=== PATIENT | female | born 1995 | race Caucasian/White ===

== ENCOUNTER 2016-07-27 15:31 | Observation (INO) | payer OTHER ==
--- NOTE | 2016-07-27 15:40 | EDPHY ---
H & P Time Seen by Provider: 07/27/16 15:31 HPI/ROS: CHIEF COMPLAINT: Multiple seizures HISTORY OF PRESENT ILLNESS: Patient is a history of chronic back pain and takes Xanax and Percocet and gabapentin. She tells me she had history of seizures in high school which she was told she "would outgrow." She does not know she was on medication in the past. Today she was at a training for a new job at the [employer] [place] when she felt nauseated went to the bathroom threw up several times and then went back to the training. She said she felt very hot and then does not remember anything after that until the paramedics. The EMS reports that she had 6 separate episodes which were described as possible seizures. The described her eyes fluttering in her face twitching and the patient becoming nonverbal from between 30 seconds to 4 minutes at a time. No incontinence. No grand mal activity. No tongue biting or laceration. Not currently postictal. Received 7.5mg IV versed by EMS. REVIEW OF SYSTEMS: Eye: no change in vision ENT: no sore throat Cardiac: no chest pain or syncope Pulmonary: no cough or SOB Abdomen: No diarrhea or abdominal pain Musculoskeletal: Chronic back pain unchanged Skin: no rash Neuro: no headache Constitutional: no fever : no urinary symptoms A comprehensive 10 point review of systems is otherwise negative aside from elements mentioned in the history of present illness. PAST MEDICAL HISTORY: Includes back pain as above, history of neurocardiogenic syncope. Social history: Moved here from [place] 1 year ago, her prescribing physician is still in [place] General Appearance: Alert and conversant, cooperative. Eyes: No scleral icterus. ENT, Mouth: Normal mucous membranes. No tongue laceration or abrasion Respiratory: Normal respiratory effort, breath sounds equal, lungs are clear to auscultation. Cardiovascular: Regular rate and rhythm. Gastrointestinal: Abdomen is soft and non tender. Neurological: Alert and oriented x3. Normally conversant. Face symmetric, normal movement and sensation in all extremities. Not tremulous. Normal finger- to-nose bilaterally. Skin: Warm and dry, no rashes. Musculoskeletal: No peripheral edema and no joint swelling. Psychiatric: Not agitated. Emergency Department course/MDM: Called patient's father with her permission at 3:40 p.m. Discussed at 4814; neurocardiogenic syncope history per father, but not epilepsy. I think it is highly likely that this is recurrent neurocardiogenic syncope. Especially in the setting of nausea vomiting and feeling very hot in the training room. I do not think this is likely to represent a grand mal seizures or status epilepticus. Plan for IV normal saline 2 L, observation in the emergency department, we will definitely need to wait for her Versed start to wear off. 1720: Patient was sitting up and then had an episode where she passed out, started hyperventilating, her eyelids were fluttering, lasted about 1 minutes and then she woke up and was immediately lucid. She tells me these are the episodes that she had in high school which her father told me were diagnosed as neurocardiogenic syncope. She now has a migraine headache which is typical for her. 15 mg Toradol IV and 4 mg Zofran IV and 3rd L normal saline. 1824: Continues migraine, Reglan and dexamethasone 1919: Patient had 2 more episodes here, at this time she is sleepy and her headache is better and she is able to be awakened easily. At this time the patient is to be admitted as she had continued episodes and is not safe to go home. 2001: Fanestil for hospitalist. Smoking Status: Never smoked Constitutional: Initial Vital Signs Temperature (C) 37 C 07/27/16 15:31 Heart Rate 97 07/27/16 15:31 Respiratory Rate 16 07/27/16 15:31 Blood Pressure 140/96 H 07/27/16 15:31 O2 Sat (%) 98 07/27/16 15:31 O2 Delivery Mode Room Air Allergies/Adverse Reactions: No Known Allergies Allergy (Verified 11/05/15 11:38) Home Medications: Medication Instructions Recorded ALPRAZolam [Xanax 1 MG (*)] 1 mg PO DAILY PRN 10/20/15 Nebivolol HCl [Bystolic 5 mg (*)] 5 mg PO HS 10/20/15 Zaleplon [Sonata] 10 mg PO HS 10/20/15 Etonogestrel/Ethinyl Estradiol 1 each VG Q30D 11/05/15 [Nuvaring Vaginal Ring] Cyanocobalamin [Vitamin B12 (*)] 1,000 mcg PO HS 07/27/16 Gabapentin [Neurontin 300 MG (*)] 600 mg PO HS 07/27/16 Herbals/Supplements -Info Only 1 ea PO DAILY 07/27/16 oxyCODONE/APAP [Percocet 1 tab PO HS PRN 07/27/16] Medical Decision Making - Diagnostics EKG Interpretation: 12-lead EKG interpreted by me; official reading is in trace master. My interpretation is sinus rhythm with borderline T-wave abnormalities otherwise normal, rate 99. Differential Diagnosis: Differential diagnosis considered for syncope including but not limited to vasovagal syncope, arrhythmia, dehydration, and blood loss. - Data Points Laboratory Results: Laboratory Results 07/27/16 15:30 07/27/16 15:30 07/27/16 07/27/16 07/27/16 15:30 15:30 15:30 WBC 6.91 10^3/uL 10^3/uL (3.80-9.50) RBC 4.51 10^6/uL 10^6/uL (4.18-5.33) Hgb 13.9 g/dL g/dL (12.6-16.3) Hct 40.0 % % (38.0-47.0) MCV 88.7 fL fL (81.5-99.8) MCH 30.8 pg pg (27.9-34.1) MCHC 34.8 g/dL g/dL (32.4-36.7) RDW 12.6 % % (11.5-15.2) Plt Count 282 10^3/uL 10^3/uL (150-400) MPV 9.3 fL fL (8.7-11.7) Neut % (Auto) 41.4 % % (39.3-74.2) Lymph % (Auto) 44.6 % % (15.0-45.0) Emmons % (Auto) 12.7 % % (4.5-13.0) Eos % (Auto) 0.4 % L % (0.6-7.6) Baso % (Auto) 0.6 % % (0.3-1.7) Nucleat RBC Rel Count 0.0 % % (0.0-0.2) Absolute Neuts (auto) 2.86 10^3/uL 10^3/uL (1.70-6.50) Absolute Lymphs (auto) 3.08 10^3/uL H 10^3/uL (1.00-3.00) Absolute Monos (auto) 0.88 10^3/uL H 10^3/uL (0.30-0.80) Absolute Eos (auto) 0.03 10^3/uL 10^3/uL (0.03-0.40) Absolute Basos (auto) 0.04 10^3/uL 10^3/uL (0.02-0.10) Absolute Nucleated RBC 0.00 10^3/uL 10^3/uL (0-0.01) Immature Gran % 0.3 % % (0.0-1.1) Immature Gran # 0.02 10^3/uL 10^3/uL (0.00-0.10) Sodium 138 mEq/L mEq/L (134-144) Potassium 3.7 mEq/L mEq/L (3.5-5.2) Chloride 100 mEq/L mEq/L (97-110) Carbon Dioxide 24 mEq/l mEq/l (22-31) Anion Gap 14 mEq/L mEq/L (8-16) BUN 16 mg/dL mg/dL (7-23) Creatinine 0.9 mg/dL mg/dL (0.6-1.0) Estimated GFR > 60 Glucose 92 mg/dL mg/dL (70-100) Calcium 10.1 mg/dL mg/dL (8.5-10.4) Beta HCG, Qual NEGATIVE Medications Given: Discontinued Medications Dexamethasone (Decadron Injection) 10 mg IVP EDNOW ONE Stop: 07/27/16 18:23 Last Admin: 07/27/16 18:37 Dose: 10 mg Sodium Chloride (Ns) 1,000 mls @ 0 mls/hr IV ONCE ONE; Wide Open PRN Reason: Protocol Stop: 07/27/16 15:43 Last Admin: 07/27/16 15:44 Dose: 1,000 mls Sodium Chloride (Ns) 1,000 mls @ 0 mls/hr IV ONCE ONE; Wide Open PRN Reason: Protocol Stop: 07/27/16 15:48 Last Admin: 07/27/16 15:52 Dose: 1,000 mls Sodium Chloride (Ns) 1,000 mls @ 0 mls/hr IV ONCE ONE; Wide Open PRN Reason: Protocol Stop: 07/27/16 17:21 Last Admin: 07/27/16 17:32 Dose: 1,000 mls Ketorolac Tromethamine (Toradol) 15 mg IVP EDNOW ONE Stop: 07/27/16 17:21 Last Admin: 07/27/16 17:32 Dose: 15 mg Metoclopramide HCl (Reglan Injection) 10 mg IVP EDNOW ONE Stop: 07/27/16 18:23 Last Admin: 07/27/16 18:37 Dose: 10 mg Ondansetron HCl (Zofran) 4 mg IVP EDNOW ONE Stop: 07/27/16 17:21 Last Admin: 07/27/16 17:32 Dose: 4 mg Departure - Departure Disposition: [facility] Acute Clinical Impression: Syncope Qualifiers: Syncope type: unspecified Qualified Code(s): R55 - Syncope and collapse Condition: Good
[2016-07-27] MEDS ORDERED: NS 1,000 ML IV ONE ×3 (15:42→17:20)
[2016-07-27 15:48] LABS: % IMMATURE GRANULYOCYTES 0.3 % (0.0-1.1); ABSOLUTE IMMATURE GRANULOCYTES 0.02 10^3/uL (0.00-0.10); ADD DIFF? NO; ADD MORPH? NO; ADD SCAN? NO; ATYPICAL LYMPHOCYTE FLAG 20 (0-99); FRAGMENT RBC FLAG 0 (0-99); HEMOGLOBIN 13.9 g/dL (12.6-16.3); LEFT SHIFT FLG 0 (0-99); LIPEMIA HEMOLYSIS FLAG 90 (0-99); MEAN CELL HEMOGLOBIN 30.8 pg (27.9-34.1); MEAN CELL HEMOGLOBIN CONCENTR. 34.8 g/dL (32.4-36.7); MEAN CELL VOLUME 88.7 fL (81.5-99.8); MEAN PLATELET VOLUME 9.3 fL (8.7-11.7); PLATELET CLUMPS FLAG 0 (0-99); PLATELET COUNT 282 10^3/uL (150-400); RED BLOOD CELL COUNT 4.51 10^6/uL (4.18-5.33); RED CELL DISTRIBUTION WIDTH 12.6 % (11.5-15.2)
--- NOTE | 2016-07-27 15:51 | CPEKG ---
Heart Rate: 99 RR Interval: 606 P-R Interval: 188 QRSD Interval: 84 QT Interval: 368 QTC Interval: 473 P Avinger: 36 QRS Avinger: 7 T Wave Avinger: 8 EKG Severity - BORDERLINE ECG - EKG Impression: SINUS RHYTHM EKG Impression: BORDERLINE T WAVE ABNORMALITIES Electronically Signed By: William Camarena 27-Jul-2016 15:56:45
[2016-07-27 16:09] LABS: ANION GAP 14 mEq/L (8-16); CALCIUM 10.1 mg/dL (8.5-10.4); CARBON DIOXIDE 24 mEq/l (22-31); CHLORIDE 100 mEq/L (97-110); CREATININE 0.9 mg/dL (0.6-1.0); GLOMERULAR FILTRATION RATE > 60; GLUCOSE 92 mg/dL (70-100); POTASSIUM 3.7 mEq/L (3.5-5.2); SODIUM 138 mEq/L (134-144)
[2016-07-27] MEDS ORDERED: KETOROLAC 15 MG/1 ML SDV ONE (17:20)
[2016-07-27] MEDS ORDERED: ONDANSETRON 4 MG/2 ML VIAL ONE (17:20)
[2016-07-27] MEDS ORDERED: ONDANSETRON 4 MG/2 ML VIAL IVP ONE (17:20)
[2016-07-27] MEDS ORDERED: KETOROLAC 30 MG/1 ML SDV IVP ONE (17:20)
[2016-07-27] MEDS ORDERED: METOCLOPRAMIDE 10 MG/2 ML VIAL IVP ONE (18:22)
[2016-07-27] MEDS ORDERED: DEXAMETHASONE 10 MG/ML VIAL IVP ONE (18:22)
[2016-07-27] MEDS: LORazepam 2 MG/ML INJ IVP PRN (23:00)
[2016-07-27] MEDS ORDERED: ACETAMINOPHEN 325 MG TAB PO PRN (23:15)
[2016-07-27] MEDS ORDERED: ONDANSETRON DISINTEGRATING 4 MG TAB PO PRN (23:15)
[2016-07-27] MEDS ORDERED: NS 1,000 ML IV SCH (23:15)
[2016-07-27] MEDS ORDERED: ONDANSETRON 4 MG/2 ML VIAL IVP PRN (23:15)
[2016-07-27] MEDS ORDERED: LORazepam 2 MG/ML INJ ONE (23:18)
[2016-07-27] MEDS ORDERED: levETIRAcetam 1,000 MG in NS 100 ML IV ONE (23:21)
[2016-07-27] MEDS: OXYCODONE/APAP 5/325 TAB PO PRN (23:53)
[2016-07-28 00:13] LABS: COLOR PALE YELLOW; LEUKOCYTE ESTERASE,URINE NEGATIVE (NEGATIVE); NITRITE,URINE NEGATIVE (NEGATIVE)
[2016-07-28 00:24] LABS: BACTERIA TRACE /hpf (NONE SEEN)
[2016-07-28] MEDS ORDERED: ZOLPIDEM TARTRATE 5 MG TAB PO PRN (01:07)
[2016-07-28 01:10] LABS: PHENCYCLIDINE URINE BCH < 6 ng/ml (NEGATIVE); PHENCYCLIDINE URINE BCH NEGATIVE (NEGATIVE); TETRAHYDROCANNABINOL URINE < 5 ng/mL (NEGATIVE); TETRAHYDROCANNABINOL URINE NEGATIVE (NEGATIVE)
[2016-07-28] MEDS: OXYCODONE/APAP 5/325 TAB PO PRN (04:30)
[2016-07-28 04:36] VITALS: TEMP 98.5
[2016-07-28] MEDS: LORazepam 2 MG/ML INJ IVP PRN (05:00)
[2016-07-28] MEDS ORDERED: NS 1,000 ML IV ONE (05:05)
[2016-07-28] MEDS ORDERED: NS IV ONE (05:07)
[2016-07-28] MEDS ORDERED: PHENYTOIN SODIUM IV ONE (05:07)
--- NOTE | 2016-07-28 05:12 | PDGENHP ---
History and Physical - Chief Complaint unresponsive episodes - History of Present Illness Patient is a 21 year old female with reported history of neurocardiac syncope ( with recurrent syncope in 2010, none since) who presents to the ED after several unresponsive episodes. Patient was apparently at work today when at lunch she reports suddenly feeling hot/flushed. Shortly after this she reports having an acute wave of nausea and began vomiting several times (nonbloody/ nonbilious). Immediately after this, she felt significant dizzy, altered her coworker and was helped to the ground before becoming unresponsive. Patient does not remember any details after this. EMS was then called and on their evaluation, patient had 3 episodes of unresponsive shaking, twitching, eye rolling, which were by brief lucid intervals. She was given a total of 7.5 mg of IV versed while en route to the ED. On arrival to the ED, patient was afebrile, hemodynamically stable and saturating well. She arrived to the ED lucid, able to give history and during ED course had an additional 3 episodes of unresponsiveness, lasting about 1-2 minutes, resolved without intervention. She was again lucid after these episodes and complaining of a headache. Labs revealed normal cbc, bmp. She was given treatment for her headache and admitted for further management. After admission and arrival to the general medical floor, patient had another unresponsive episode, witnessed by myself. The episode was preceded by dry heaving, intense nausea. Shortly after this, patient became unresponsive, developed a R gaze preference and had low amplitude twitching of all her limbs. This lasted for approximately 1 minute and was stopped when ativan 1 mg IVP was given. At this time, patient was loaded with keppra [address] head was obtained. CT head was negative for any acute abnormalities. Again this morning at about 5 am, patient had another series of episodes similar to the above described event. The episodes were preceded by retching/ dry heaving without vomiting, lasted between 2-3 minutes. She was given ativan 1 mg again, but then again seized within the next 2 minutes, again lasting about 2-3 minutes. At this time she was transferred to the ICU and also loaded with phenytoin. She continues to protect her airway at this time. [facility] neurology was consulted and recommend transfer to [facility] for neuroICU care. History Information - Allergies/Home Medication List Allergies/Adverse Reactions: No Known Allergies Allergy (Verified 11/05/15 11:38) Home Medications: ALPRAZolam [Xanax 1 MG (*)] 1 mg PO DAILY PRN 10/20/15 [Last Taken 07/20/16] Nebivolol HCl [Bystolic 5 mg (*)] 5 mg PO HS 10/20/15 [Last Taken 07/26/16 23:00 ] Zaleplon [Sonata] 10 mg PO HS 10/20/15 [Last Taken 07/26/16 23:00] Etonogestrel/Ethinyl Estradiol [Nuvaring Vaginal Ring] 1 each VG Q30D 11/05/15 [ Last Taken Unknown] Cyanocobalamin [Vitamin B12 (*)] 1,000 mcg PO HS 07/27/16 [Last Taken 07/26/16 23:00] Gabapentin [Neurontin 300 MG (*)] 600 mg PO HS 07/27/16 [Last Taken 07/26/16 23: 00] Herbals/Supplements -Info Only 1 ea PO DAILY 07/27/16 [Last Taken Unknown] oxyCODONE/APAP 5/325 [Percocet 5/325] 1 tab PO HS PRN 07/27/16 [Last Taken 07/26 23:00] I have personally reviewed and updated: family history, medical history, social history, surgical history - Past Medical History Additional medical history: chronic back pain, lumbar radiculopathy. neurogenic syncope - Family History Additional family history: tonsillectomy. appendectomy. wisdom tooth extraction - Social History Smoking Status: Never smoked Alcohol Use: Occasionally Drug Use: None Additional social history: denies drug use; lives in [place] originally from [place] [facility] [facility] Review of Systems ROS: 10pt was reviewed & negative except for what was stated in HPI & below Physical Exam Temp Pulse Resp BP Pulse Ox 36.9 C 93 16 123/73 H 94 07/28/16 04:00 07/28/16 04:00 07/28/16 04:00 07/28/16 04:00 07/28/16 04:00 Constitutional: no apparent distress, appears nourished, not in pain Eyes: PERRL, anicteric sclera, EOMI Ears, Nose, Mouth, Throat: moist mucous membranes, hearing normal, ears appear normal, no oral mucosal ulcers Cardiovascular: regular rate and rhythym, no murmur, rub, or gallop, pulses symmetric bilaterally, No JVD, No edema Peripheral Pulses: 2+: dorsalis-pedis (R), dorsalis-pedis (L) Respiratory: no respiratory distress, no rales or rhonchi, clear to auscultation Gastrointestinal: normoactive bowel sounds, soft, non-tender abdomen, no palpable masses, No guarding, No rebound, No distension Genitourinary: no bladder fullness, no bladder tenderness Skin: warm, normal color, no rashes or abrasions, no fluctuance, no induration, No mottled Musculoskeletal: full muscle strength, no muscle tenderness, normal joint ROM, no joint effusions Neurologic: AAOx3, sensation intact bilaterally, CN II-XII Intact, No weakness, No numbness, No facial droop Psychiatric: interacting appropriately, not anxious, not encephalopathic, thought process linear, other (episode consistent with a generalized tonic clonic seizure) Lab Data & Imaging Review 07/28/16 04:21 07/27/16 15:30 WBC 6.91 10^3/uL (3.80-9.50) 07/27/16 15:30 RBC 4.51 10^6/uL (4.18-5.33) 07/27/16 15:30 Hgb 13.9 g/dL (12.6-16.3) 07/27/16 15:30 Hct 40.0 % (38.0-47.0) 07/27/16 15:30 MCV 88.7 fL (81.5-99.8) 07/27/16 15:30 MCH 30.8 pg (27.9-34.1) 07/27/16 15:30 MCHC 34.8 g/dL (32.4-36.7) 07/27/16 15:30 RDW 12.6 % (11.5-15.2) 07/27/16 15:30 Plt Count 282 10^3/uL (150-400) 07/27/16 15:30 MPV 9.3 fL (8.7-11.7) 07/27/16 15:30 Neut % (Auto) 41.4 % (39.3-74.2) 07/27/16 15:30 Lymph % (Auto) 44.6 % (15.0-45.0) 07/27/16 15:30 Scurry % (Auto) 12.7 % (4.5-13.0) 07/27/16 15:30 Eos % (Auto) 0.4 % (0.6-7.6) L 07/27/16 15:30 Baso % (Auto) 0.6 % (0.3-1.7) 07/27/16 15:30 Nucleat RBC Rel Count 0.0 % (0.0-0.2) 07/27/16 15:30 Absolute Neuts (auto) 2.86 10^3/uL (1.70-6.50) 07/27/16 15:30 Absolute Lymphs (auto) 3.08 10^3/uL (1.00-3.00) H 07/27/16 15:30 Absolute Monos (auto) 0.88 10^3/uL (0.30-0.80) H 07/27/16 15:30 Absolute Eos (auto) 0.03 10^3/uL (0.03-0.40) 07/27/16 15:30 Absolute Basos (auto) 0.04 10^3/uL (0.02-0.10) 07/27/16 15:30 Absolute Nucleated RBC 0.00 10^3/uL (0-0.01) 07/27/16 15:30 Immature Gran % 0.3 % (0.0-1.1) 07/27/16 15:30 Immature Gran # 0.02 10^3/uL (0.00-0.10) 07/27/16 15:30 Sodium 138 mEq/L (134-144) 07/27/16 15:30 Potassium 3.7 mEq/L (3.5-5.2) 07/27/16 15:30 Chloride 100 mEq/L (97-110) 07/27/16 15:30 Carbon Dioxide 24 mEq/l (22-31) 07/27/16 15:30 Anion Gap 14 mEq/L (8-16) 07/27/16 15:30 BUN 16 mg/dL (7-23) 07/27/16 15:30 Creatinine 0.9 mg/dL (0.6-1.0) 07/27/16 15:30 Estimated GFR > 60 07/27/16 15:30 Glucose 92 mg/dL (70-100) 07/27/16 15:30 Calcium 10.1 mg/dL (8.5-10.4) 07/27/16 15:30 Beta HCG, Qual NEGATIVE 07/27/16 15:30 Urine Color PALE YELLOW 07/27/16 22:30 Urine Appearance CLEAR 07/27/16 22:30 Urine pH 5.0 (5.0-7.5) 07/27/16 22:30 Ur Specific [place] 1.008 (1.002-1.030) 07/27/16 22:30 Urine Protein NEGATIVE (NEGATIVE) 07/27/16 22:30 Urine Ketones NEGATIVE (NEGATIVE) 07/27/16 22:30 Urine Blood 1+ (NEGATIVE) H 07/27/16 22:30 Urine Nitrate NEGATIVE (NEGATIVE) 07/27/16 22:30 Urine Bilirubin NEGATIVE (NEGATIVE) 07/27/16 22:30 Urine Urobilinogen NEGATIVE EU (0.2-1.0) 07/27/16 22:30 Ur Leukocyte Esterase NEGATIVE (NEGATIVE) 07/27/16 22:30 Urine RBC 1-3 /hpf (0-3) 07/27/16 22:30 Urine WBC 1-3 /hpf (0-3) 07/27/16 22:30 Ur Epithelial Cells TRACE /lpf (NONE-1+) 07/27/16 22:30 Urine Bacteria TRACE /hpf (NONE SEEN) H 07/27/16 22:30 Urine Glucose NEGATIVE (NEGATIVE) 07/27/16 22:30 Urine Opiates Screen NEGATIVE ng/mL (NEGATIVE) 07/27/16 22:30 Urine Barbiturates NEGATIVE ng/mL (NEGATIVE) 07/27/16 22:30 Ur Phencyclidine Scrn NEGATIVE ng/mL (NEGATIVE) 07/27/16 22:30 Ur Amphetamines Screen NEGATIVE ng/mL (NEGATIVE) 07/27/16 22:30 U Benzodiazepines Scrn 1257 ng/mL (NEGATIVE) 07/27/16 22:30 Urine Cocaine Screen 1982 ng/mL (NEGATIVE) 07/27/16 22:30 U Marijuana (THC) Screen NEGATIVE ng/mL (NEGATIVE) 07/27/16 22:30 Influenza A & B (PCR) NEGATIVE FOR FLU (NEGATIVE) 07/27/16 00:10 Visualized and Interpreted imaging results: Yes Interpretation: CT head: no acute abnormalities Visualized and Interpreted EKG results: Yes EKG Interpretation: Positive for: normal sinsus rhythm Assessment & Plan Assessment: Patient is a 21 year old female with history of neurocardiogenic syncope in young adulthood who presents to the ED with a series of unresponsive episodes. Initial ED evaluation was concerning for recurrent syncopal episodes, however, on my assessment, patient has generalized tonic clonic seizures, recurrent, consistent with status epilepticus. She has been transferred to the ICU, loaded with phenytoin. [facility] neurology was consulted and recommend transfer to [facility] for neuroICU care. Plan: # status epilepticus This morning patient has several seizures, lasting minutes, not resolved with ativan, consistent with status epilepticus. She has now been loaded with Keppra 1 g and now also phenytoin. Etiology of seizures is not clear at this time; patient has no obvious signs/symptoms of infection, CT head was unremarkable for acute abnormalities. Drug screen is positive for cocaine. Will require transfer to [facility] for neuro ICU care, continuous EEG monitoring. [facility] neurology has been consulted and have accepted the patient. #gen: NPO Full code
[2016-07-28 05:20] LABS: % IMMATURE GRANULYOCYTES 0.6 % (0.0-1.1); ABSOLUTE IMMATURE GRANULOCYTES 0.04 10^3/uL (0.00-0.10); ADD DIFF? NO; ADD MORPH? NO; ADD SCAN? NO; ATYPICAL LYMPHOCYTE FLAG 0 (0-99); FRAGMENT RBC FLAG 0 (0-99); HEMATOCRIT 38.2 % (38.0-47.0); HEMOGLOBIN 13.2 g/dL (12.6-16.3); LEFT SHIFT FLG 10 (0-99); LIPEMIA HEMOLYSIS FLAG 90 (0-99); MEAN CELL HEMOGLOBIN 30.8 pg (27.9-34.1); MEAN CELL HEMOGLOBIN CONCENTR. 34.6 g/dL (32.4-36.7); MEAN PLATELET VOLUME 9.3 fL (8.7-11.7); PLATELET CLUMPS FLAG 0 (0-99); PLATELET COUNT 265 10^3/uL (150-400); RED BLOOD CELL COUNT 4.29 10^6/uL (4.18-5.33); RED CELL DISTRIBUTION WIDTH 12.7 % (11.5-15.2)
[2016-07-28 05:30] LABS: INR 0.99 (0.83-1.16)
[2016-07-28 05:31] LABS: APTT 26.2 SEC (23.0-38.0)
[2016-07-28 05:46] LABS: ANION GAP 9 mEq/L (8-16); CALCIUM 9.1 mg/dL (8.5-10.4); CARBON DIOXIDE 19 mEq/l (22-31); CHLORIDE 111 mEq/L (97-110); CREATININE 0.7 mg/dL (0.6-1.0); GLOMERULAR FILTRATION RATE > 60; GLUCOSE 122 mg/dL (70-100); MAGNESIUM 1.8 mg/dL (1.6-2.3); POTASSIUM 4.4 mEq/L (3.5-5.2); SODIUM 139 mEq/L (134-144)
[2016-07-28 05:59] LABS: PROLACTIN 24.3 ng/mL (3.0-18.6)
[2016-07-28 08:25] VITALS: BP 118/64; PULSE 97; RESP 21; O2SAT 98
== END 2016-07-28 09:04 | disposition short-term general hospital (02) ==
LOC: EDUNIT# → F3N 20:57 → F2N 07-28 05:30
PROVIDERS: ADMIT Internal Medicine; ATTEND Internal Medicine
DX: G40.901 Epilepsy, unspecified, not intractable, with status epilepticus (principal); R55 Syncope and collapse; M54.16 Radiculopathy, lumbar region; G89.29 Other chronic pain; G43.909 Migraine, unspecified, not intractable, without status migrainosus
CPT/HCPCS: 70450; 71010; 93005; G0378; 80307; 96374; G0480; J1885; J1953; J2060; J2405; J2765

== ENCOUNTER 2016-11-28 02:01 | Emergency (ER) | payer MEDICAID, OTHER ==
[2016-11-28 02:09] VITALS: RESP 20
--- NOTE | 2016-11-28 02:35 | EDPHY ---
H & P Stated Complaint: rectal bleed/ pain, bloody vomit Time Seen by Provider: 11/28/16 02:16 HPI/ROS: HPI The patient presents with bright red blood per rectum which has been present for the last 1 day. She she has been taking opiate pain medications for about 1 year, Percocet 5 mg, 3 tabs multiple times a day. She has lately had hard painful stools. Then she began to notice blood in the toilet bowl today. She also had several episodes of vomiting which were initially yellowish and then became blood tinged. She denies any abdominal pain.. REVIEW OF SYSTEMS Constitutional: No fever, no chills. Eyes: No discharge. ENT: No sore throat. Cardiovascular: No chest pain, no palpitations. Respiratory: No cough, no shortness of breath. Gastrointestinal: No abdominal pain, no vomiting. Genitourinary: No hematuria. Musculoskeletal: No back pain. Skin: No rashes. Neurological: No headache. PMHx: Chronic low back pain PHYSICAL General Appearance: Alert, no distress Eyes: Pupils equal and round no pallor or injection ENT, Mouth: Mucous membranes moist Respiratory: There are no retractions, lungs are clear to auscultation Cardiovascular: Regular rate and rhythm Gastrointestinal: Abdomen is soft and non-tender, no masses, bowel sounds normal Rectal: Multiple external hemorrhoids which are tender to palpation without any color change or firmness, no active bleeding Neurological: A&O, moves all extremities Skin: Warm and dry, no rashes Musculoskeletal: Neck is supple non tender Extremities: symmetrical, full range of motion Psychiatric: Patient is oriented X 3, there is no agitation Source: Patient Exam Limitations: No limitations - Personal History LMP (Females 10-55): IUD In Place - Medical/Surgical History Hx Asthma: No Hx Chronic Respiratory Disease: No Hx Diabetes: No Hx Cardiac Disease: No Hx Renal Disease: No Hx Cirrhosis: No Hx Alcoholism: No Hx HIV/AIDS: No Hx Splenectomy or Spleen Trauma: No Other PMH: HTN, migrainesl, SZ. chronic back problems, L5/S1 herniated disck - Social History Smoking Status: Never smoked Constitutional: Initial Vital Signs Temperature (C) 37.2 C 11/28/16 02:06 Heart Rate 100 11/28/16 02:06 Respiratory Rate 20 11/28/16 02:06 Blood Pressure 135/90 H 11/28/16 02:06 O2 Delivery Mode Room Air Allergies/Adverse Reactions: No Known Allergies Allergy (Verified 11/28/16 02:04) Home Medications: Medication Instructions Recorded ALPRAZolam [Xanax 1 MG (*)] 1 mg PO DAILY PRN 10/20/15 Nebivolol HCl [Bystolic 5 mg (*)] 5 mg PO HS 10/20/15 Cyanocobalamin [Vitamin B12 (*)] 1,000 mcg PO HS 07/27/16 Gabapentin [Neurontin 300 MG (*)] 600 mg PO HS 07/27/16 Herbals/Supplements -Info Only 1 ea PO DAILY 07/27/16 oxyCODONE/APAP 5/325 [Percocet 1 tab PO HS PRN 07/27/16 5/325] Buspar (*) 11/28/16 Hydrocodone Bit/Acetaminophen 11/28/16 Hydrocortisone Acetate [Anucort-Hc] 25 mg RC BID #14 supp.rect 11/28/16 Polyethylene Glycol 3350 [Miralax 17 gm PO DAILY #20 pkt 11/28/16 17 gm (*)] Temazepam 11/28/16 Medical Decision Making Differential Diagnosis: This is a 21-year-old female who presents with 1 day of painful rectal bleeding associated with hard stools. On exam, she has several external tender hemorrhoids which do not appear thrombosed. I feel she is likely suffering from constipation for her chronic opiate use. This has likely exacerbated her external hemorrhoids and caused bleeding. I have explained this to her. I will treat her with MiraLax and Anusol. She is to try these medications for 2 weeks and if not feeling better, she can follow up with General surgery. I- STAT was checked and her hemoglobin is within normal limits, thus I doubt any serious bleeding. Other considerations for her bleeding include AVM or colon cancer, however I feel these are much less likely. - Data Points Medications Given: Discontinued Medications Ondansetron HCl (Zofran Odt) 4 mg PO EDNOW ONE Stop: 11/28/16 03:32 Last Admin: 11/28/16 03:31 Dose: 4 mg Ondansetron HCl (Zofran Odt 4 Mg Prepack#2) 1 btl TAKEHOME EDNOW ONE Stop: 11/28/16 03:32 Last Admin: 11/28/16 03:32 Dose: 1 btl Departure - Departure Disposition: Home, Routine, Self-Care Clinical Impression: Constipation, Rectal bleeding, External hemorrhoids Condition: Good Instructions: Ondansetron (By mouth), Hemorrhoids (ED) Additional Instructions: To help with your constipation, you should try to stop taking the Percocet. You should meet with your pain management doctor to see what alternatives exists. You should make sure to take the MiraLax once daily. If you continue to have constipation with this, then you should add magnesium citrate. If your hemorrhoids continue to bother you despite treatment for 2 weeks with these medications, then you can make an appointment with the surgeon. Referrals: JORGE,SANKET [Other] - As per Instructions Popeye Navarro MD [Medical Doctor] - As per Instructions Prescriptions: Hydrocortisone Acetate [Anucort-Hc] 25 mg RC BID #14 supp.rect Polyethylene Glycol 3350 [Miralax 17 gm (*)] 17 gm PO DAILY #20 pkt
[2016-11-28] MEDS ORDERED: ONDANSETRON DISINTEGRATING 4 MG TAB ONE (03:26)
[2016-11-28] MEDS ORDERED: ONDANSETRON 4MG PREPACK#2 BTL TAKEHOME ONE ×2 (03:26→03:31)
[2016-11-28] MEDS ORDERED: ONDANSETRON DISINTEGRATING 4 MG TAB PO ONE (03:31)
[2016-11-28 03:44] VITALS: BP 95/71; PULSE 80; TEMP 97.7; O2SAT 95
== END 2016-11-28 03:44 | disposition home or self-care (01) ==
DX: K64.4 Residual hemorrhoidal skin tags (principal); K59.00 Constipation, unspecified; I10 Essential (primary) hypertension
CPT/HCPCS: 82947-QW

== ENCOUNTER 2017-08-20 11:38 | Emergency (ER) | payer BC, OTHER ==
--- NOTE | 2017-08-20 12:27 | EDPHY ---
H & P Stated Complaint: R abd pain radiating R flank~1wk;HOUSE MOVER SUPERVISOR eval 7/3 +small ov cysts Time Seen by Provider: 08/20/17 12:27 - Personal History LMP (Females 10-55): IUD In Place Current Tetanus Diphtheria and Acellular Pertussis (TDAP): Yes - Medical/Surgical History Hx Asthma: No Hx Chronic Respiratory Disease: No Hx Diabetes: No Hx Cardiac Disease: No Hx Renal Disease: No Hx Cirrhosis: No Hx Alcoholism: No Hx HIV/AIDS: No Hx Splenectomy or Spleen Trauma: No Other PMH: HTN, migrainesl, SZ. chronic back problems, L5/S1 herniated disck - Social History Smoking Status: Never smoked Constitutional: Initial Vital Signs Temperature (C) 36.9 C 08/20/17 11:42 Heart Rate 96 08/20/17 11:42 Respiratory Rate 18 08/20/17 11:42 Blood Pressure 133/98 H 08/20/17 11:42 O2 Sat (%) 98 08/20/17 11:42 O2 Delivery Mode Room Air Allergies/Adverse Reactions: No Known Allergies Allergy (Verified 08/20/17 11:40) Home Medications: Medication Instructions Recorded ALPRAZolam [Xanax 1 MG (*)] 1 mg PO 08/20/17 Gabapentin [Neurontin 100 MG (*)] 100 mg PO HS 08/20/17 Hydrocodone/APAP 5/325 [Sharon 1 - 2 each PO Q4-6PRN PRN #20 tab 08/20/17 5/325] Zolpidem Tartrate [Ambien 5MG (*)] 08/20/17 Medical Decision Making - Diagnostics Imaging Results: Imaging Impressions Abdomen/Pelvis Ultrasound 08/20/17 12:38 Impression: Normal renal sonogram. No renal obstruction. Results were communicated to Ky Sanchez MD, at 08/20/2017 13:[address] 08/20/17 13:30 Impression: 1. Constipation 2. Possible mesenteric adenitis. Inability to identify the appendix or secondary evidence for appendicitis. 3. 4.3 cm right ovarian cyst, without pelvic free fluid. Results called and discussed with Ky Sanchez MD, at 08/20/2017 14:20 General information for patients regarding this examination can be found at [email or web address]. If you have questions or comments about this report, please contact me at [phone] (hospital) or [phone] (cell). Imaging: Discussed imaging studies w/ train caller Radiologist, I viewed and interpreted images myself ED Course/Re-evaluation: CHIEF COMPLAINT: Right-sided abdominal pain HISTORY OF PRESENT ILLNESS: The patient is a 22 y/o female with a history of chronic back pain complaining of right-sided abdominal pain that is radiating to her flank, onset , 6 days ago. On Friday, 3 days ago, the pain exacerbated. Yesterday she saw her blacktop paver operator who performed an ultrasound and diagnosed her with a small ovarian cyst. Today the pain continued; this pain is not similar to prior back pain. She is also having pain towards the end of urination. Denies headache, chest pain, shortness of breath, bowel complaints, numbness, paresthesias, fever. REVIEW OF SYSTEMS: A 10 point review of systems was performed and is negative with the exception of the elements mentioned in the history of present illness. PHYSICAL EXAM: HR, BP, O2 Sat, RR. Temp noted General Appearance: Alert, well hydrated, appropriate, and non-toxic appearing. Head: Atraumatic without scalp tenderness or obvious injury Eyes: Pupils equal, round, reactive to light and accommodation, EOMI, no trauma , no injection. Ears: Clear bilaterally, no perforation, normal landmarks Nose: Atraumatic, no rhinorrhea, clear. Throat: There is no erythema or exudates, no lesions, normal tonsils, mucus membranes moist. Neck: Supple, nontender, no lymphadenopathy. Respiratory: No retractions, no distress, no wheezes, and no accessory muscle use. Lungs are clear to auscultation bilaterally. Cardiovascular: Regular rate and rhythm, no murmurs, rubs, or gallops. Bilateral carotid, radial, dorsalis pedis, and posterior tibial pulses intact. Good capillary refill all extremities. Gastrointestinal: Abdomen is soft, nontender, non-distended, no masses, no rebound, no guarding, no peritoneal signs. Flank: Right CVA tenderness to palpation. Musculoskeletal: Normal active ROM of all extremities, atraumatic. Neurological: Alert, appropriate, and interactive. The patient has normal DTRs and non-focal cranial nerves, motor, sensory, and cerebellar exam. Skin: No rashes, good turgor, no nodules on palpation. Past medical history: Hypertension, migraines, seizure, chronic back problems, L5/S1 herniated disk Past surgical history: Denies Family history: Denies Social history: Lives in [place], employed, single DIAGNOSTICS/PROCEDURES/CRITICAL CARE TIME: Right renal ultrasound: No acute findings Abdominopelvic CT: 4.2 cm right ovarian cyst DIFFERENTIAL DIAGNOSIS: The differential diagnosis for the patient's flank pain included but was not limited to musculoskeletal causes, kidney stone, pyelonephritis, shingles, diverticulitis, appendicitis, and aortic aneurysm. MEDICAL DECISION MAKING: The patient is a 22 y/o female with a history of chronic back pain presenting with right-sided abdominal pain that is radiating to her flank, onset , 6 days ago. She was diagnosed wit h a small right ovarian cyst yesterday, but her pain continues to worsen. On exam she has right CVA tenderness. Labs and right renal ultrasound ordered. 1L IV NS, 30mg IV Toradol, 1mg IV Dilaudid, and 4mg IV Zofran given. 1235: Patient has a negative UA. 1321: Patient has a normal right renal ultrasound. Her labs are also normal. Abdominopelvic CT ordered. 1420: Spoke with radiologist who reports the patient has a right ovarian cyst, which is larger than the one reported on the ultrasound yesterday. 1434: Reassessed patient and discussed laboratory and imaging findings. I have advised her to follow up with her blacktop paver operator in the next week. I have also prescribed her Sharon for pain. Return precautions provided; patient is comfortable with this plan. - Data Points Laboratory Results: Laboratory Results 08/20/17 13:10 08/20/17 13:10 08/20/17 08/20/17 08/20/17 13:10 13:10 13:10 WBC 7.61 10^3/uL 10^3/uL (3.80-9.50) RBC 4.91 10^6/uL 10^6/uL (4.18-5.33) Hgb 15.0 g/dL g/dL (12.6-16.3) Hct 43.3 % % (38.0-47.0) MCV 88.2 fL fL (81.5-99.8) MCH 30.5 pg pg (27.9-34.1) MCHC 34.6 g/dL g/dL (32.4-36.7) RDW 12.4 % % (11.5-15.2) Plt Count 289 10^3/uL 10^3/uL (150-400) MPV 9.4 fL fL (8.7-11.7) Neut % (Auto) 61.2 % % (39.3-74.2) Lymph % (Auto) 31.7 % % (15.0-45.0) [place] % (Auto) 6.0 % % (4.5-13.0) Eos % (Auto) 0.3 % L % (0.6-7.6) Baso % (Auto) 0.4 % % (0.3-1.7) Nucleat RBC Rel Count 0.0 % % (0.0-0.2) Absolute Neuts (auto) 4.66 10^3/uL 10^3/uL (1.70-6.50) Absolute Lymphs (auto) 2.41 10^3/uL 10^3/uL (1.00-3.00) Absolute Monos (auto) 0.46 10^3/uL 10^3/uL (0.30-0.80) Absolute Eos (auto) 0.02 10^3/uL L 10^3/uL (0.03-0.40) Absolute Basos (auto) 0.03 10^3/uL 10^3/uL (0.02-0.10) Absolute Nucleated RBC 0.00 10^3/uL 10^3/uL (0-0.01) Immature Gran % 0.4 % % (0.0-1.1) Immature Gran # 0.03 10^3/uL 10^3/uL (0.00-0.10) Sodium 138 mEq/L mEq/L (135-145) Potassium 3.9 mEq/L mEq/L (3.3-5.0) Chloride 109 mEq/L mEq/L (97-110) Carbon Dioxide 23 mEq/l mEq/l (22-31) Anion Gap 6 mEq/L L mEq/L (8-16) BUN 9 mg/dL mg/dL (7-23) Creatinine 0.6 mg/dL mg/dL (0.6-1.0) Estimated GFR > 60 Glucose 83 mg/dL mg/dL (70-100) Calcium 9.9 mg/dL mg/dL (8.5-10.4) Total Bilirubin 0.7 mg/dL mg/dL (0.1-1.4) Conjugated Bilirubin 0.3 mg/dL mg/dL (0.0-0.5) Unconjugated Bilirubin 0.4 mg/dL mg/dL (0.0-1.1) AST 17 IU/L IU/L (14-46) ALT 26 IU/L IU/L (9-52) Alkaline Phosphatase 77 IU/L IU/L (38-126) Total Protein 7.4 g/dL g/dL (6.3-8.2) Albumin 4.7 g/dL g/dL (3.5-5.0) Lipase 103 IU/L IU/L (23-300) Beta HCG, Qual NEGATIVE Urine Color Urine Appearance Urine pH Ur Specific [place] Urine Protein Urine Ketones Urine Blood Urine Nitrate Urine Bilirubin Urine Urobilinogen Ur Leukocyte Esterase Urine Glucose 08/20/17 12:20 WBC RBC Hgb Hct MCV MCH MCHC RDW Plt Count MPV Neut % (Auto) Lymph % (Auto) [place] % (Auto) Eos % (Auto) Baso % (Auto) Nucleat RBC Rel Count Absolute Neuts (auto) Absolute Lymphs (auto) Absolute Monos (auto) Absolute Eos (auto) Absolute Basos (auto) Absolute Nucleated RBC Immature Gran % Immature Gran # Sodium Potassium Chloride Carbon Dioxide Anion Gap BUN Creatinine Estimated GFR Glucose Calcium Total Bilirubin Conjugated Bilirubin Unconjugated Bilirubin AST ALT Alkaline Phosphatase Total Protein Albumin Lipase Beta HCG, Qual Urine Color YELLOW Urine Appearance HAZY Urine pH 7.0 (5.0-7.5) Ur Specific [place] 1.014 (1.002-1.030) Urine Protein NEGATIVE (NEGATIVE) Urine Ketones NEGATIVE (NEGATIVE) Urine Blood NEGATIVE (NEGATIVE) Urine Nitrate NEGATIVE (NEGATIVE) Urine Bilirubin NEGATIVE (NEGATIVE) Urine Urobilinogen NEGATIVE EU EU (0.2-1.0) Ur Leukocyte Esterase NEGATIVE (NEGATIVE) Urine Glucose NEGATIVE (NEGATIVE) Medications Given: Discontinued Medications Hydromorphone HCl (Dilaudid) 1 mg IVP EDNOW ONE Stop: 08/20/17 12:38 Last Admin: 08/20/17 12:57 Dose: 1 mg Sodium Chloride (Ns) 1,000 mls @ 0 mls/hr IV EDNOW ONE; Wide Open PRN Reason: Protocol Stop: 08/20/17 12:38 Last Admin: 08/20/17 12:57 Dose: 1,000 mls Ketorolac Tromethamine (Toradol) 30 mg IVP EDNOW ONE Stop: 08/20/17 12:38 Last Admin: 08/20/17 12:57 Dose: 30 mg Ondansetron HCl (Zofran) 4 mg IVP EDNOW ONE Stop: 08/20/17 12:38 Last Admin: 08/20/17 12:57 Dose: 4 mg Departure - Departure Disposition: Home, Routine, Self-Care Clinical Impression: Ovarian cyst Qualifiers: Laterality: right Qualified Code(s): N83.201 - Unspecified ovarian cyst, right side Condition: Good Instructions: Ovarian Cyst (ED) Additional Instructions: 1. Take Vicodin as prescribed. 2. Follow up with your blacktop paver operator this week. 3. Return to the emergency apartment for fever, severe pain, inability to urinate or other concerns. Referrals: TOBIN FREDERICK [Other] - As per Instructions Prescriptions: Hydrocodone/APAP 5/325 [Sharon 5/325] 1 - 2 each PO Q4-6PRN PRN #20 tab PRN Reason: Pain, Moderate Report Scribed for: Ky Sanchez Report Scribed by: Katey Hay Date of Report: 08/20/17 Time of Report: 12:34
[2017-08-20] MEDS ORDERED: ONDANSETRON 4 MG/2 ML VIAL IVP ONE (12:37)
[2017-08-20] MEDS ORDERED: KETOROLAC 30 MG/1 ML SDV IVP ONE (12:37)
[2017-08-20] MEDS ORDERED: HYDROmorphONE/DILAUDID 2 MG/ML INJ IVP ONE (12:37)
[2017-08-20] MEDS ORDERED: NS 1,000 ML IV ONE (12:37)
[2017-08-20 13:19] LABS: PLATELET COUNT 289 10^3/uL (150-400)
[2017-08-20] MEDS ORDERED: IOPAMIDOL (ISOVUE-300) 100 ML BTL ONE (13:38)
[2017-08-20 14:12] VITALS: BP 142/86
== END 2017-08-20 14:45 | disposition home or self-care (01) ==
DX: N83.201 Unspecified ovarian cyst, right side (principal); E86.9 Volume depletion, unspecified; I10 Essential (primary) hypertension
CPT/HCPCS: 96374; J1170; J1885; J2405; Q9967

== ENCOUNTER 2017-08-26 17:31 | Emergency (ER) | payer BC, OTHER ==
[2017-08-26] MEDS ORDERED: NS 1,000 ML IV ONE (19:40)
--- NOTE | 2017-08-26 19:40 | EDPHY ---
H & P Time Seen by Provider: 08/26/17 19:12 HPI/ROS: Chief complaint. Abdominal pain HPI. 22-year-old female with about 10 days of right lower quadrant abdominal pain. She was seen in our emergency department August 20 and diagnosed with both constipation as well as mesenteric adenitis and a right ovarian cyst. She continues to have pain in the right side abdomen. She has no urinary symptoms. No fever, vomiting or diarrhea. On CT on August 20 they were non not able to see her appendix. However she has had an appendectomy. She did follow up with noc technician today who referred her to the emergency department. The pain on the right- sided describing is cramp be sharp and throbbing. She did vomit a few days ago but not since. Hurts to bear down lie flat or walk. Fever about 1 week ago but not since. ROS Constitutional. no fever/chills, no weakness Eyes. no problems with vision ENT. no sore throat, no nasal drainage Cardiovascular. no chest pain Respiratory. no shortness of breath, no cough Abdominal. Right mid and right lower quadrant abdominal pain . no problems urinating MS. no calf pain/swelling, no neck/back pain, no joint pain Skin. no rash Lymph. no swollen glands Neuro. no headache, no dizziness, no difficulty walking or with speech Past Medical/Surgical History: Hypertension, IUD, migraines, seizure, chronic back pain, appendectomy Social History: Single, nonsmoker, no alcohol Smoking Status: Never smoked Physical Exam: General Appearance: Alert well-developed female moderate distress vital signs are stable Eyes: Pupils equal and round no pallor or injection. ENT, Mouth: Mucous membranes are moist. Respiratory: There are no retractions, lungs are clear to auscultation. Cardiovascular: Regular rate and rhythm. Gastrointestinal: Abdomen is soft with diffuse tenderness right mid right lower and right adnexal area of the abdomen. No real discomfort on the left side. No masses. Normal bowel sounds Neurological: Awake and alert, sensory and motor exams grossly normal. Skin: Warm and dry, no rashes. Musculoskeletal: Neck is supple nontender. Extremities symmetrical, full range of motion. Psychiatric: Patient is oriented X 3, there is no agitation. Constitutional: Initial Vital Signs Temperature (C) 36.7 C 08/26/17 17:36 Heart Rate 86 08/26/17 17:36 Respiratory Rate 18 08/26/17 17:36 Blood Pressure 153/91 H 08/26/17 17:36 O2 Sat (%) 97 08/26/17 17:36 O2 Delivery Mode Room Air Allergies/Adverse Reactions: No Known Allergies Allergy (Verified 08/26/17 17:35) Home Medications: Medication Instructions Recorded ALPRAZolam [Xanax 1 MG (*)] 1 mg PO 08/20/17 Gabapentin [Neurontin 100 MG (*)] 100 mg PO HS 08/20/17 Hydrocodone/APAP 5/325 [[place] 1 - 2 each PO Q4-6PRN PRN #20 tab 08/20/17 5/325] Zolpidem Tartrate [Ambien 5MG (*)] 08/20/17 Hydrocodone/APAP 5/325 [[place] 1 each PO Q4-6PRN PRN #10 tab 08/26/17 5/325 (*)] Medical Decision Making - Diagnostics Imaging Results: Imaging Impressions Abdomen/Pelvis CT 08/26/17 20:09 Impression: 1. No renal obstruction or stone formation 2. Persistent constipation 3. Enlarging right ovarian cyst Results called and discussed with MOUSTAPHA RUIZ, at 08/26/2017 20:58 Attention: This CT examination is specifically designed to evaluate patients who are clinically suspected of having acute obstructive uropathy. This examination does not use radiographic contrast, and as such, provides only a limited evaluation of the abdomen, pelvis and retroperitoneum. If there is further clinical suspicion for pathological conditions other than obstructive uropathy, a complete CT evaluation of the abdomen and pelvis utilizing intravenous, oral, and rectal contrast should be considered. General information for patients regarding this examination can be found at [email or web address]. If you have questions or comments about this report, please contact me at (hospital) or [phone] (cell). Pelvic/Renal Ultrasound 08/26/17 20:09 Impression: Large simple cyst right ovary. Results called and discussed with MOUSTAPHA RUIZ, at 08/26/2017 21:18 CT abdomen without contrast shows no evidence for kidney stone. Persistent constipation that is moderate. Ultrasound shows increase in size in the ovarian cyst which is now 4.8 x 4.7 cm. No evidence for torsion . Reviewed by me and discussed with Dr. Marte Procedures: IV normal saline. Toradol, Dilaudid, Zofran IV ED Course/Re-evaluation: Re-evaluation 9:25 p.m.--patient is stable. Patient and I discussed imaging and lab results. We discussed treatment plan including criteria for return importance of follow-up and further evaluation. She expresses understanding and agreement Differential Diagnosis: I considered small-bowel obstruction, constipation, pyelonephritis and urinary tract infection, kidney stone, ovarian cyst and ovarian torsion - Data Points Laboratory Results: Laboratory Results 08/26/17 18:50 08/26/17 18:50 08/26/17 08/26/17 08/26/17 18:50 18:50 18:50 WBC 7.35 10^3/uL 10^3/uL (3.80-9.50) RBC 4.78 10^6/uL 10^6/uL (4.18-5.33) Hgb 14.6 g/dL g/dL (12.6-16.3) Hct 42.1 % % (38.0-47.0) MCV 88.1 fL fL (81.5-99.8) MCH 30.5 pg pg (27.9-34.1) MCHC 34.7 g/dL g/dL (32.4-36.7) RDW 12.7 % % (11.5-15.2) Plt Count 290 10^3/uL 10^3/uL (150-400) MPV 9.6 fL fL (8.7-11.7) Neut % (Auto) 43.2 % % (39.3-74.2) Lymph % (Auto) 48.8 % H % (15.0-45.0) [place] % (Auto) 6.7 % % (4.5-13.0) Eos % (Auto) 0.7 % % (0.6-7.6) Baso % (Auto) 0.5 % % (0.3-1.7) Nucleat RBC Rel Count 0.0 % % (0.0-0.2) Absolute Neuts (auto) 3.17 10^3/uL 10^3/uL (1.70-6.50) Absolute Lymphs (auto) 3.59 10^3/uL H 10^3/uL (1.00-3.00) Absolute Monos (auto) 0.49 10^3/uL 10^3/uL (0.30-0.80) Absolute Eos (auto) 0.05 10^3/uL 10^3/uL (0.03-0.40) Absolute Basos (auto) 0.04 10^3/uL 10^3/uL (0.02-0.10) Absolute Nucleated RBC 0.00 10^3/uL 10^3/uL (0-0.01) Immature Gran % 0.1 % % (0.0-1.1) Immature Gran # 0.01 10^3/uL 10^3/uL (0.00-0.10) Sodium 135 mEq/L mEq/L (135-145) Potassium 3.7 mEq/L mEq/L (3.3-5.0) Chloride 104 mEq/L mEq/L (97-110) Carbon Dioxide 24 mEq/l mEq/l (22-31) Anion Gap 7 mEq/L L mEq/L (8-16) BUN 8 mg/dL mg/dL (7-23) Creatinine 0.7 mg/dL mg/dL (0.6-1.0) Estimated GFR > 60 Glucose 87 mg/dL mg/dL (70-100) Calcium 10.0 mg/dL mg/dL (8.5-10.4) Beta HCG, Qual NEGATIVE Urine Color Urine Appearance Urine pH Ur Specific [place] Urine Protein Urine Ketones Urine Blood Urine Nitrate Urine Bilirubin Urine Urobilinogen Ur Leukocyte Esterase Urine RBC Urine WBC Ur Epithelial Cells Urine Bacteria Urine Glucose Urine Test 08/26/17 08/26/17 17:38 17:38 WBC RBC Hgb Hct MCV MCH MCHC RDW Plt Count MPV Neut % (Auto) Lymph % (Auto) [place] % (Auto) Eos % (Auto) Baso % (Auto) Nucleat RBC Rel Count Absolute Neuts (auto) Absolute Lymphs (auto) Absolute Monos (auto) Absolute Eos (auto) Absolute Basos (auto) Absolute Nucleated RBC Immature Gran % Immature Gran # Sodium Potassium Chloride Carbon Dioxide Anion Gap BUN Creatinine Estimated GFR Glucose Calcium Beta HCG, Qual Urine Color YELLOW Urine Appearance CLEAR Urine pH 6.0 (5.0-7.5) Ur Specific [place] 1.006 (1.002-1.030) Urine Protein NEGATIVE (NEGATIVE) Urine Ketones NEGATIVE (NEGATIVE) Urine Blood 1+ H (NEGATIVE) Urine Nitrate NEGATIVE (NEGATIVE) Urine Bilirubin NEGATIVE (NEGATIVE) Urine Urobilinogen NEGATIVE EU EU (0.2-1.0) Ur Leukocyte Esterase NEGATIVE (NEGATIVE) Urine RBC 10-15 /hpf H /hpf (0-3) Urine WBC 3-5 /hpf H /hpf (0-3) Ur Epithelial Cells TRACE /lpf /lpf (NONE-1+) Urine Bacteria 4+ /hpf H /hpf (NONE SEEN) Urine Glucose NEGATIVE (NEGATIVE) Urine Test NEGATIVE Medications Given: Discontinued Medications Hydromorphone HCl (Dilaudid) 0.5 mg IVP EDNOW ONE Stop: 08/26/17 19:51 Last Admin: 08/26/17 19:57 Dose: 0.5 mg Hydromorphone HCl (Dilaudid) 0.5 mg IVP EDNOW ONE Stop: 08/26/17 21:06 Last Admin: 08/26/17 21:11 Dose: 0.5 mg Sodium Chloride (Ns) 1,000 mls @ 0 mls/hr IV EDNOW ONE; Wide Open PRN Reason: Protocol Stop: 08/26/17 19:41 Last Admin: 08/26/17 19:43 Dose: 1,000 mls Ketorolac Tromethamine (Toradol) 30 mg IVP EDNOW ONE Stop: 08/26/17 19:51 Last Admin: 08/26/17 19:56 Dose: 30 mg Ondansetron HCl (Zofran) 4 mg IVP EDNOW ONE Stop: 08/26/17 21:06 Last Admin: 08/26/17 21:11 Dose: 4 mg Departure - Departure Disposition: Home, Routine, Self-Care Clinical Impression: Ovarian cyst Qualifiers: Laterality: right Qualified Code(s): N83.201 - Unspecified ovarian cyst, right side Condition: Good Instructions: Ovarian Cyst (ED), Constipation (ED) Additional Instructions: For the ovarian cyst baseline medication is ibuprofen using 600 mg every 6 hr for pain. May use hydrocodone in addition if necessary for pain however this will also contribute to constipation For constipation increase fluids including fruit and prune juice, milk of magnesia, magnesium citrate in green bottle, Ducalox--these may all be purchased at the grocery store without prescription Return for worsening symptoms. Follow up with gynecology in the next 2-3 days if not improved Referrals: MLODINOW,TOBIN [Other] - As per Instructions Prescriptions: Hydrocodone/APAP 5/325 [[place] 5/325 (*)] 1 each PO Q4-6PRN PRN #10 tab PRN Reason: Pain, Moderate
[2017-08-26] MEDS ORDERED: KETOROLAC 30 MG/1 ML SDV IVP ONE (19:50)
[2017-08-26] MEDS ORDERED: HYDROmorphONE/DILAUDID 2 MG/ML INJ IVP ONE ×2 (19:50→21:05)
[2017-08-26 19:53] LABS: PLATELET COUNT 290 10^3/uL (150-400)
[2017-08-26 21:05] VITALS: BP 127/83
[2017-08-26] MEDS ORDERED: ONDANSETRON 4 MG/2 ML VIAL IVP ONE (21:05)
== END 2017-08-26 21:57 | disposition home or self-care (01) ==
DX: N83.201 Unspecified ovarian cyst, right side (principal); E86.9 Volume depletion, unspecified; I10 Essential (primary) hypertension; Z90.89 Acquired absence of other organs
CPT/HCPCS: 96374; J1170; J1885; J2405

== ENCOUNTER → 2017-11-18 | Outpatient (CLI) | payer OTHER | LOC: FIMAGING 12:54 | PROVIDERS: ATTEND Midwife | DX: R10.814 Left lower quadrant abdominal tenderness (principal); N83.02 Follicular cyst of left ovary ==